=== PATIENT | female | born 2000 | race Two or more races ===

== ENCOUNTER 2024-01-31 08:51 | Emergency (ER) | payer MEDICAID, OTHER ==
[~2024-01-31] VITALS: Ht 160 cm; Wt 63.8 kg
[2024-01-31] MEDS: THIAMINE 100mg/ml INJ (200mg/2ml VIAL) IV ONE (10:46)
[2024-01-31] MEDS: SODIUM CHLORIDE 0.9% 1,000 ML IV ONE (10:46)
[2024-01-31 10:51] VITALS: BP 111/71; PULSE 111; RESP 18; TEMP 98; O2SAT 98
== END 2024-01-31 12:26 | disposition home or self-care (01) ==
LOC: ER 08:51 → EDBD 08:51 → ER 12:24
DX: S80.11XA Contusion of right lower leg, initial encounter (principal); M79.18 Myalgia, other site; M54.2 Cervicalgia; R51.9 Headache, unspecified; F10.129 Alcohol abuse with intoxication, unspecified; X58.XXXA Exposure to other specified factors, initial encounter; Y93.89 Activity, other specified; Y92.89 Other specified places as the place of occurrence of the external cause; Y99.8 Other external cause status; Y90.8 Blood alcohol level of 240 mg/100 ml or more
CPT/HCPCS: 36415; 70450; 72125; 73590; 80320; 96361; 96374; 99285; J3411; J7030